=== PATIENT | female | born 1985 | race Caucasian/White ===

== ENCOUNTER 2018-03-27 21:12 | Emergency (ER) | payer MEDICAID ==
[~2018-03-27] VITALS: Ht 157.5 cm; Wt 70.3 kg
[2018-03-27 21:24] VITALS: BP 116/75
--- NOTE | 2018-03-27 21:29 | NUR ---
PT AMBULATORY TO BR THEN TO ER LOBBY W/ STEADY GAIT IN STABLE CONDITION.
[2018-03-27 22:00] LABS: BASOPHILS % (AUTO) 0.6 % (0.0-2.0); EOSINOPHILS # (AUTO) 0.2 K/uL (0-0.4); EOSINOPHILS % (AUTO) 2.4 % (0.0-4.0); HEMATOCRIT 36.7 % (36-48); HEMOGLOBIN 12.5 g/dL (12.0-16.0); LYMPHOCYTES # (AUTO) 1.2 K/uL (2.5-16.5); LYMPHOCYTES % (AUTO) 14.7 % (20.5-51.1); MEAN CORPUSCULAR HEMOGLOBIN 29 pg (27-31); MEAN CORPUSCULAR HGB CONC 34 g/dL (33-37); MEAN CORPUSCULAR VOLUME 85.2 fL (80-94); MONOCYTES # (AUTO) 0.6 K/uL (0.8-1.0); MONOCYTES % (AUTO) 7.2 % (1.7-9.3); NEUTROPHILS # (AUTO) 6.3 K/uL (1.8-7.7); NEUTROPHILS % (AUTO) 75.1 % (42.2-75.2); PLATELET COUNT (AUTO) 253 K/uL (140-450); RED BLOOD CELL COUNT(AUTO) 4.31 MIL/uL (4.20-5.40); RED CELL DISTRIBUTION WIDTH 13.6 % (11.6-13.7); WHITE BLOOD COUNT (AUTO) 8.4 K/uL (4.8-10.8)
--- NOTE | 2018-03-27 22:24 | NUR ---
PT AMBULATED TO BED 7
--- NOTE | 2018-03-27 22:24 | NUR ---
32/F came in w c/o midsternal chest pain, radiating to upper chest x 3 days. 72HR even and regular. All lung sounds CBTA, 16RR even and unlabored. Skin is warm and dry. Denies SOB, N/V. pt is 17 weeks , . LMP 12/09/2017. PMH: GERD, took Tums without relief
[2018-03-27 22:32] LABS: ANION GAP 10.2 (8-16); CARBON DIOXIDE 26.6 mmol/L (21-32); CREATININE 0.5 mg/dL (0.6-1.3); POTASSIUM 3.8 mmol/L (3.5-5.1)
[2018-03-27 22:37] LABS: APPEARANCE,URINE CLEAR (CLEAR); BILIRUBIN,URINE NEGATIVE (NEGATIVE); BLOOD, URINE NEGATIVE (NEGATIVE); COLOR,URINE YELLOW (YELLOW); LEUKOCYTE ESTERASE ,URINE NEGATIVE (NEGATIVE); NITRITE, URINE NEGATIVE (NEGATIVE); PH,URINE 6.5 (5.0-9.0); UGLUCOSE NEGATIVE (NEGATIVE)
[2018-03-27 22:38] LABS: ALBUMIN 3.2 g/dL (3.4-5.0); TOTAL BILIRUBIN 0.2 mg/dL (0.0-1.0)
--- NOTE | 2018-03-27 22:52 | NUR ---
L&D RN AT BEDSIDE FOR T
--- NOTE | 2018-03-27 23:04 | NUR ---
Dr. Ortiz evaluating patient at bedside.
[2018-03-27] MEDS ORDERED: ACETAMINOPHEN EXTRA STRENGTH 500 MG TAB PO ONE (23:30)
--- NOTE | 2018-03-28 00:12 | NUR ---
Ultrasound at bedside.
[2018-03-28 01:20] VITALS: BP 119/62
--- NOTE | 2018-03-28 01:20 | NUR ---
Patient discharged with v/s stable. Written and verbal after care instructions given and explained. Patient alert, oriented and verbalized understanding of instructions. Ambulatory with steady gait. All questions addressed prior to discharge. ID band removed. Patient advised to follow up with PMD. Rx of ACETAMINOPHEN 500MG given. Patient educated on indication of medication including possible reaction and side effects. Opportunity to ask questions provided and answered.
== END 2018-03-28 01:20 | disposition home or self-care (01) ==
LOC: MED 21:12
DX: O26.892 Other specified pregnancy related conditions, second trimester (principal); K21.9 Gastro-esophageal reflux disease without esophagitis; Z88.0 Allergy status to penicillin; Z3A.17 17 weeks gestation of pregnancy
CPT/HCPCS: 36415; 76705; 80053; 81003; 81025; 83690; 85025; 93005; 99284; Q0092

== ENCOUNTER 2018-06-17 15:37 | Inpatient (IN) | payer MEDICAID ==
[~2018-06-17] VITALS: Ht 157.5 cm; Wt 71.7 kg
[2018-06-17] MEDS ORDERED: PREN-380 PO (16:03)
[2018-06-17 16:09] VITALS: BP 114/72
[2018-06-17] MEDS ORDERED: TERBUTALINE 1 MG/ML VIAL SUBQ SCH (17:30)
[2018-06-17] MEDS ORDERED: TERBUTALINE 1 MG/ML VIAL SUBQ ONE (17:43)
[2018-06-17 18:53] LABS: APPEARANCE,URINE CLEAR (CLEAR); BILIRUBIN,URINE NEGATIVE (NEGATIVE); BLOOD, URINE NEGATIVE (NEGATIVE); COLOR,URINE YELLOW (YELLOW); LEUKOCYTE ESTERASE ,URINE NEGATIVE (NEGATIVE); NITRITE, URINE NEGATIVE (NEGATIVE); UGLUCOSE NEGATIVE (NEGATIVE)
== END 2018-06-17 19:46 | disposition home or self-care (01) | DRG 566 ==
LOC: MLD 15:37 → OBSVTOIN 15:37
PROVIDERS: ADMIT Obstetrics & Gynecology; ATTEND Obstetrics & Gynecology
DX: O26.893 Other specified pregnancy related conditions, third trimester (principal); R10.9 Unspecified abdominal pain; Z3A.30 30 weeks gestation of pregnancy
CPT/HCPCS: 81003; C1758; G0378; J3105

== ENCOUNTER 2018-07-13 13:41 | Observation (INO) | payer MEDICAID ==
[~2018-07-13] VITALS: Ht 160 cm; Wt 71.7 kg
[~2018-07-13 13:41] MED LIST: PREN-380 PO
[2018-07-13 14:21] VITALS: BP 121/73
--- NOTE | 2018-07-13 15:22 | NUR ---
PATIENT HAS BEEN SCREENED AND CATEGORIZED LOW NUTRITION RISK. PATIENT WILL BE SEEN WITHIN 7 DAYS OF ADMISSION. 07/20/[address]
[2018-07-13] MEDS ORDERED: PREN-380 PO (15:52)
== END 2018-07-13 16:05 | disposition home or self-care (01) ==
LOC: MLD 13:41
PROVIDERS: ADMIT Obstetrics & Gynecology; ATTEND Obstetrics & Gynecology
DX: O36.8130 Decreased fetal movements, third trimester, not applicable or unspecified (principal); Z3A.33 33 weeks gestation of pregnancy
CPT/HCPCS: 76819; 81000; G0378; Q0092

== ENCOUNTER 2018-08-23 17:07 | Emergency (ER) | payer MEDICAID ==
[~2018-08-23] VITALS: Ht 160 cm; Wt 85.9 kg
[2018-08-23 17:30] VITALS: BP 145/99
--- NOTE | 2018-08-23 17:36 | NUR ---
PT AMBULATED TO ER BED 08
--- NOTE | 2018-08-23 18:00 | NUR ---
BIB SELF WITH C/O FACE SWOLLEN THIS MORNING, REFFERRED FROM DR. CORDERO TO CHECK BP, 39 WEEKS . A/O X4. PERRLA. [employer]. PITTING EDEMA +1 PRESENT TO BILATERAL LOWER EXTREMITIES. DENIES ANY PAIN AT THIS TIME. DENIES N/V/D. PT CONNECTED TO MONITOR. SIDERAIL UP X1 FOR SAFETY.
[2018-08-23 18:44] LABS: APPEARANCE,URINE HAZY (CLEAR); COLOR,URINE YELLOW (YELLOW)
[2018-08-23 18:45] LABS: BILIRUBIN,URINE NEGATIVE (NEGATIVE); BLOOD, URINE NEGATIVE (NEGATIVE); LEUKOCYTE ESTERASE ,URINE NEGATIVE (NEGATIVE); NITRITE, URINE NEGATIVE (NEGATIVE); PH,URINE 6.5 (5.0-9.0); UGLUCOSE NEGATIVE (NEGATIVE)
[2018-08-23 18:50] LABS: BASOPHILS % (AUTO) 0.2 % (0.0-2.0); EOSINOPHILS # (AUTO) 0.1 K/uL (0-0.4); EOSINOPHILS % (AUTO) 2.2 % (0.0-4.0); HEMOGLOBIN 12.6 g/dL (12.0-16.0); LYMPHOCYTES # (AUTO) 1.1 K/uL (2.5-16.5); LYMPHOCYTES % (AUTO) 18.8 % (20.5-51.1); MEAN CORPUSCULAR HEMOGLOBIN 29 pg (27-31); MEAN CORPUSCULAR HGB CONC 34 g/dL (33-37); MEAN CORPUSCULAR VOLUME 84.5 fL (80-94); MONOCYTES # (AUTO) 0.6 K/uL (0.8-1.0); MONOCYTES % (AUTO) 9.4 % (1.7-9.3); NEUTROPHILS # (AUTO) 4.1 K/uL (1.8-7.7); NEUTROPHILS % (AUTO) 69.4 % (42.2-75.2); PLATELET COUNT (AUTO) 189 K/uL (140-450); RED BLOOD CELL COUNT(AUTO) 4.38 MIL/uL (4.20-5.40); WHITE BLOOD COUNT (AUTO) 5.9 K/uL (4.8-10.8)
[2018-08-23 19:04] LABS: ALBUMIN 2.4 g/dL (3.4-5.0); ANION GAP 13.6 (8-16); CARBON DIOXIDE 22.2 mmol/L (21-32); CREATININE 0.6 mg/dL (0.6-1.3); POTASSIUM 3.8 mmol/L (3.5-5.1); TOTAL BILIRUBIN 0.3 mg/dL (0.0-1.0)
--- NOTE | 2018-08-23 19:17 | NUR ---
Pt report given to R[facility] Booker . Transfer of care at this time.
--- NOTE | 2018-08-23 19:18 | NUR ---
RECEIVED REPORT FROM [facility] CONNOLLY.
--- NOTE | 2018-08-23 20:10 | NUR ---
DR. ALONSO REEVALUATING AT BEDSIDE.
[2018-08-23 20:15] VITALS: BP 135/83
--- NOTE | 2018-08-23 20:15 | NUR ---
Patient discharged with v/s stable. Written and verbal after care instructions given and explained. Patient verbalized understanding. Ambulatory with steady gait. All questions addressed prior to discharge. Advised to follow up with PMD.
[2018-08-26 20:25] LABS: LACTATE DEHYDROGENASE 174 IU/L (119-226)
[2018-08-27 08:07] LABS: LD1 FRACTION 28 % (17-32); LD2 FRACTION 30 % (25-40); LD3 FRACTION 22 % (17-27); LD4 FRACTION 10 % (5-13); LD5 FRACTION 10 % (4-20)
== END 2018-08-23 20:15 | disposition home or self-care (01) ==
LOC: MED 17:07
DX: O99.413 Diseases of the circulatory system complicating pregnancy, third trimester (principal); R03.0 Elevated blood-pressure reading, without diagnosis of hypertension; R60.0 Localized edema; Z3A.39 39 weeks gestation of pregnancy; Z79.899 Other long term (current) drug therapy; Z88.0 Allergy status to penicillin
CPT/HCPCS: 36415; 80053; 81003; 81025; 83625; 85025; 99283

== ENCOUNTER 2021-01-04 08:09 | Day surgery (SDC) | payer MEDICAID ==
[~2021-01-04] VITALS: Ht 157.5 cm; Wt 74.8 kg
[2021-01-04] MEDS ORDERED: fentaNYL citrate 0.05 MG/ML VIAL ONE (12:04)
[2021-01-04] MEDS ORDERED: MIDAZOLAM 5 MG/5 ML VIAL ONE (12:05)
[2021-01-04] MEDS ORDERED: MIDAZOLAM 2 MG/2 ML VIAL IVP ONE (13:40)
== END 2021-01-04 13:12 | disposition home or self-care (01) ==
LOC: MDS 08:09 → MMU 08:09 → MDS 13:12
PROVIDERS: ATTEND Internal Medicine Gastroenterology
DX: K21.9 Gastro-esophageal reflux disease without esophagitis (principal); Z80.0 Family history of malignant neoplasm of digestive organs; Z88.0 Allergy status to penicillin; Z79.899 Other long term (current) drug therapy
CPT/HCPCS: 43235; 81025; J2250; J3010